=== PATIENT | female | born 1940 | race Caucasian/White ===

== ENCOUNTER 2021-11-01 21:56 | Observation (INO) | payer OTHER ==
[~2021-11-01] VITALS: Ht 165.1 cm; Wt 59.3 kg
[2021-11-02 01:09] LABS: Basophils # (auto) 0 10 ^3/uL (0-0.2); Basophils % (auto) 0.3 % (0.0-2.0); Eosinophils # (auto) 0 10 ^3/uL (0-0.8); Eosinophils % (auto) 0.1 % (0.0-7.0); Hematocrit 43.8 % (36.0-46.0); Hemoglobin 14.7 g/dL (12.2-16.2); Lymphocytes # (auto) 0.7 10 ^3/uL (0.4-5.4); Lymphocytes % (auto) 4.2 % (10.0-50.0); Mean Corpuscular Hemoglobin 31.5 pg (28.0-32.0); Mean Corpuscular Hgb Conc. 33.6 g/dL (32.0-36.0); Mean Corpuscular Volume 93.7 fL (80.0-100.0); Monocytes # (auto) 0.9 10 ^3/uL (0-1.3); Monocytes % (auto) 5.7 % (0.0-12.0); Neutrophils # (auto) 14.5 10 ^3/uL (1.6-8.6); Neutrophils % (auto) 89.7 % (37.0-80.0); Red Blood Cells 4.67 10^6/uL (4.0-5.20); Red Cell Distribution Width 13.5 % (11.8-14.3); White Blood Cell 16.2 10^3/uL (4.4-10.8)
[2021-11-02 01:54] LABS: Albumin 3.1 g/dL (3.4-5.0); BUN/Creatinine Ratio 18.4; Calcium 8.3 mg/dL (8.5-10.1); Potassium 3.8 mmol/L (3.5-5.1)
[2021-11-02 01:57] LABS: Bilirubin, Total 0.6 mg/dL (0.2-1.0); Total Protein 6.6 g/dL (6.4-8.2)
[2021-11-02] MEDS ORDERED: KETOROLAC TROMETH 30 MG/ML 1ML VIAL IV ONE (02:00)
[2021-11-02] MEDS ORDERED: SODIUM CHLORIDE 0.9% 1,000 ML IV ONE (02:00)
[2021-11-02] MEDS ORDERED: IOHEXOL 300 MG/ML 100ML BOTTLE IJ ONE (02:07)
[2021-11-02 02:08] LABS: Urine Bacteria NONE SEEN /hpf (None Seen); Urine Blood 2+ /uL (Negative); Urine Mucus FEW (None Seen); Urine Specific Gravity 1.012 (1.001-1.035); Urine WBC 2 /hpf (0 - 5)
[2021-11-02] MEDS ORDERED: cefTRIAXone 1GM/50ML D5W 50 ML IV ONE (05:15)
[2021-11-02] MEDS ORDERED: MORPHINE SULFATE 4 MG/ML SYR/VIAL IV PRN (08:00)
[2021-11-02] MEDS ORDERED: ONDANSETRON HCL 4 MG/2 ML VIAL IV PRN (08:00)
[2021-11-02] MEDS ORDERED: MORPHINE SULFATE INJECTION 2 MG/ML SYRG IV PRN (08:00)
[2021-11-02] MEDS ORDERED: NITROGLYCERIN 0.4 MG SL TAB SL PRN (08:00)
[2021-11-02] MEDS ORDERED: cefTRIAXone 1GM/50ML D5W 50 ML IV SCH (09:00)
[2021-11-02] MEDS: SODIUM CHLORIDE 0.9% 1,000 ML IV SCH ×2 (09:01→16:00)
[2021-11-02] MEDS ORDERED: PIPERACILLIN-TAZOB 3.375GM 100 ML IV SCH ×2 (09:45→12:00)
[2021-11-02 10:12] LABS: INR 1.1 (0.9-1.15)
[2021-11-02] MEDS: ENOXAPARIN SOD 40 MG/0.4 ML SYRINGE SC SCH (10:33)
[2021-11-02] MEDS ORDERED: VANCOMYCIN PER PHARMACY 0 MG IV SCH (12:15)
[2021-11-02 13:00] VITALS: BP 102/58
[2021-11-02] MEDS ORDERED: FLUT100I IN (14:04)
[2021-11-02] MEDS ORDERED: ALBU2TAB4 PO (14:04)
[2021-11-02] MEDS ORDERED: DIPH25CA66 PO (14:04)
[2021-11-02] MEDS ORDERED: IPRIH INH (14:04)
[2021-11-02] MEDS ORDERED: OMEP-434 PO (14:04)
[2021-11-02 14:22] VITALS: BP 102/58
[2021-11-02] MEDS: VANCOMYCIN 1GM/250ML 250 ML IV SCH (14:37)
[2021-11-02] MEDS: PIPERACILLIN-TAZOB 3.375GM 100 ML IV SCH ×2 (16:37→22:04)
[2021-11-02 22:00] VITALS: BP 113/61
[2021-11-03] MEDS: SODIUM CHLORIDE 0.9% 1,000 ML IV SCH ×2 (01:19→08:00)
[2021-11-03] MEDS: PIPERACILLIN-TAZOB 3.375GM 100 ML IV SCH ×2 (04:19→08:26)
[2021-11-03 05:00] VITALS: BP 91/45
[2021-11-03 06:01] LABS: Basophils # (auto) 0.1 10 ^3/uL (0-0.2); Basophils % (auto) 0.9 % (0.0-2.0); Eosinophils # (auto) 0.2 10 ^3/uL (0-0.8); Eosinophils % (auto) 2.9 % (0.0-7.0); Hematocrit 34.7 % (36.0-46.0); Hemoglobin 11.8 g/dL (12.2-16.2); Lymphocytes # (auto) 1.1 10 ^3/uL (0.4-5.4); Lymphocytes % (auto) 13.9 % (10.0-50.0); Mean Corpuscular Hemoglobin 31.8 pg (28.0-32.0); Mean Corpuscular Hgb Conc. 34.1 g/dL (32.0-36.0); Mean Corpuscular Volume 93.1 fL (80.0-100.0); Monocytes # (auto) 0.6 10 ^3/uL (0-1.3); Monocytes % (auto) 7.4 % (0.0-12.0); Neutrophils # (auto) 5.8 10 ^3/uL (1.6-8.6); Neutrophils % (auto) 74.9 % (37.0-80.0); Red Blood Cells 3.73 10^6/uL (4.0-5.20); Red Cell Distribution Width 13.6 % (11.8-14.3); White Blood Cell 7.7 10^3/uL (4.4-10.8)
[2021-11-03 06:25] LABS: Albumin 2.3 g/dL (3.4-5.0); BUN/Creatinine Ratio 20.3; Calcium 8.1 mg/dL (8.5-10.1); Potassium 3.7 mmol/L (3.5-5.1)
[2021-11-03 06:28] LABS: Bilirubin, Total 0.4 mg/dL (0.2-1.0); Total Protein 5.2 g/dL (6.4-8.2)
[2021-11-03] MEDS: ALBUTEROL SULF 2.5 MG/0.5ML(0.5%) NEB SOLN NEB PRN ×2 (07:21→10:13)
[2021-11-03] MEDS ORDERED: CLIN300C8 PO (07:29)
[2021-11-03] MEDS: ENOXAPARIN SOD 40 MG/0.4 ML SYRINGE SC SCH (08:26)
[2021-11-03 09:00] VITALS: BP 117/54
[2021-11-03] MEDS: VANCOMYCIN 1GM/250ML 250 ML IV SCH (11:34)
== END 2021-11-03 13:48 | disposition home or self-care (01) ==
LOC: ER 21:56 → TELE 11-02 08:00 → TELE-CENTR 11-02 13:28
PROVIDERS: ADMIT Hospitalist; ATTEND Hospitalist
DX: K80.10 Calculus of gallbladder with chronic cholecystitis without obstruction (principal); Z20.822 Contact with and (suspected) exposure to COVID-19; K82.8 Other specified diseases of gallbladder; J44.9 Chronic obstructive pulmonary disease, unspecified; K21.9 Gastro-esophageal reflux disease without esophagitis; K57.90 Diverticulosis of intestine, part unspecified, without perforation or abscess without bleeding; E27.8 Other specified disorders of adrenal gland; G89.4 Chronic pain syndrome; M19.90 Unspecified osteoarthritis, unspecified site; F17.210 Nicotine dependence, cigarettes, uncomplicated; Z90.710 Acquired absence of both cervix and uterus; Z79.899 Other long term (current) drug therapy
CPT/HCPCS: 36415; 71045; 74177; 74181; 76856; 78226; 80053; 81001; 82977; 83605; 83690; 85025; 85379; 85610; 87040; 87086; 87426; 93005; 93306; 94640; 96361; 96365; 96366; 96367; 96372; 96375; 99285; A9537; G0378; J0696; J1650; J1885; J2270; J2543; J3370; J7030; Q9967; U0003